=== PATIENT | female | born 1985 | race Caucasian/White ===

== ENCOUNTER 2017-03-15 03:43 | Emergency (ER) | payer SELFPAY ==
[~2017-03-15] VITALS: Ht 162.6 cm; Wt 72.0 kg
[2017-03-15 03:45] VITALS: BP 169/103; PULSE 100; RESP 16; TEMP 98; O2SAT 96
--- NOTE | 2017-03-15 04:37 | PD ---
HPI Chief Complaint: Psychiatric Symptoms Time Seen by Provider: 04:12 Travel History International Travel<30 days: No Contact w/Intl Traveler<30days: No Traveled to known affect area: No History of Present Illness HPI Patient is a 31-year-old female presents emergency department for evaluation of suicidal ideation. Patient states that she has "10 different plans to kill herself but nothing specific". Patient states that she has been doing some drinking tonight and her long distance boyfriend found out that she's been cheating on him which is triggered and emotional response tonight. She very reluctant to make eye contact very tearful when she gets history. States she's been diagnosed with ADHD and anxiety in the past but is not currently on any medications. She is accompanied by a friend who wants her to see a psychiatrist today. Patient denies any physical complaints, denies any chest pain shortness of breath abdominal pain nausea vomiting or diarrhea. PFSH Past Medical History Depression: Yes Tetanus Vaccination: > 5 Years Influenza Vaccination: No ?: Not LMP: 02/27/17 Social History Alcohol Use: Yes Tobacco Use: Yes Substance Use: No Allergies-Medications (Allergen,Severity, Reaction): Coded Allergies: Penicillin (Verified Allergy, Severe, Hives, 03/15/17) Reported Meds & Prescriptions Reported Meds & Active Scripts Active No Active Prescriptions or Reported Medications Review of Systems Except as stated in HPI: all other systems reviewed are Neg Physical Exam Narrative GENERAL: Well-developed well-nourished no apparent distress. SKIN: Focused skin assessment warm/dry. HEAD: Atraumatic. Normocephalic. EYES: Pupils equal and round. No scleral icterus. No injection or drainage. ENT: No nasal bleeding or discharge. Mucous membranes pink and moist. NECK: Trachea midline. No JVD. CARDIOVASCULAR: Regular rate and rhythm. No murmur appreciated. RESPIRATORY: No accessory muscle use. Clear to auscultation. Breath sounds equal bilaterally. GASTROINTESTINAL: Abdomen soft, non-tender, nondistended. Hepatic and splenic margins not palpable. MUSCULOSKELETAL: No obvious deformities. No clubbing. No cyanosis. No edema. NEUROLOGICAL: Awake and alert. No obvious cranial nerve deficits. Motor grossly within normal limits. Normal speech. PSYCHIATRIC: Depressed mood and depressed affect. Saw obscuring interviewed. Endorses suicidal ideation without specific planning. Appears somewhat distraught from a psychiatric standpoint and cannot clarify why. Data Data Last Documented VS Vital Signs Date Time Temp Pulse Resp B/P Pulse Ox O2 Delivery O2 Flow Rate FiO2 03/15/17 04:00 20 03/15/17 03:45 98.0 100 169/103 96 Room Air Orders Complete Blood Count With Diff (03/15/17 04:12) Comprehensive Metabolic Panel (03/15/17 04:12) Thyroid Stimulating Hormone (03/15/17 04:12) Ed Urine Pregnancytest Poc (03/15/17 04:12) Psych Screen (03/15/17 04:12) Drug Screen, Random Urine (03/15/17 04:12) Alcohol (Ethanol) (03/15/17 04:12) Salicylates (Aspirin) (03/15/17 04:12) Tylenol (Acetaminophen) (03/15/17 04:12) Labs Laboratory Tests Test 03/15/17 04:26 White Blood Count 15.1 TH/MM3 Red Blood Count 5.13 MIL/MM3 Hemoglobin 16.3 GM/DL Hematocrit 46.7 % Mean Corpuscular Volume 91.1 FL Mean Corpuscular Hemoglobin 31.7 PG Mean Corpuscular Hemoglobin 34.9 % Concent Red Cell Distribution Width 12.3 % Platelet Count 324 TH/MM3 Mean Platelet Volume 8.0 FL Neutrophils (%) (Auto) 74.1 % Lymphocytes (%) (Auto) 19.4 % Monocytes (%) (Auto) 5.3 % Eosinophils (%) (Auto) 0.8 % Basophils (%) (Auto) 0.4 % Neutrophils # (Auto) 11.2 TH/MM3 Lymphocytes # (Auto) 2.9 TH/MM3 Monocytes # (Auto) 0.8 TH/MM3 Eosinophils # (Auto) 0.1 TH/MM3 Basophils # (Auto) 0.1 TH/MM3 CBC Comment DIFF FINAL Differential Comment Sodium Level 139 MEQ/L Potassium Level 3.9 MEQ/L Chloride Level 106 MEQ/L Carbon Dioxide Level 21.3 MEQ/L Anion Gap 12 MEQ/L Blood Urea Nitrogen 6 MG/DL Creatinine 0.65 MG/DL Estimat Glomerular Filtration 105 ML/MIN Rate Random Glucose 107 MG/DL Calcium Level 9.3 MG/DL Total Bilirubin 0.3 MG/DL Aspartate Amino Transf 17 U/L (AST/SGOT) Alanine Aminotransferase 42 U/L (ALT/SGPT) Alkaline Phosphatase 67 U/L Total Protein 8.1 GM/DL Albumin 4.6 GM/DL Thyroid Stimulating Hormone 1.610 uIU/ML 3rd Gen Salicylates Level 2.7 MG/DL Acetaminophen Level LESS THAN 2.0 MCG/ML Ethyl Alcohol Level 108 MG/DL [facility] Medical Decision Making Medical Screen Exam Complete: Yes Emergency Medical Condition: Yes Differential Diagnosis Suicidal ideation, depression, shawn, adjustment disorder, alcohol intoxication. Narrative Course Patient was roomed in emergency department, currently remains voluntary status, her friend is here with her insisting that she stay for psychiatric evaluation which I don't disagree with his the patient does appear to be quite depressed. She is medically cleared for psychiatric evaluation and disposition. Diagnosis Primary Impression: Medical clearance for psychiatric admission Scripts No Active Prescriptions or Reported Meds Condition: Stable Mario Alberto Escobar MD Mar 15, 2017 04:37
[2017-03-15 04:40] LABS: AUTOMATED NEUTROPHIL # 11.2 TH/MM3 (1.8-7.7); BASOPHIL # 0.1 TH/MM3 (0-0.2); BASOPHIL % 0.4 % (0.0-2.0); EOSINOPHIL # 0.1 TH/MM3 (0-0.4); EOSINOPHIL % 0.8 % (0.0-4.0); HEMATOCRIT 46.7 % (35.0-46.0); HEMO FLAGS DIFF FINAL; LYMPH % 19.4 % (9.0-44.0); LYMPHOCYTE # 2.9 TH/MM3 (1.0-4.8); MEAN CELL VOLUME 91.1 FL (80.0-100.0); MEAN CORPUSCULAR HEMOGLOBIN 31.7 PG (27.0-34.0); MEAN CORPUSCULAR HGB CONC 34.9 % (32.0-36.0); MONO % 5.3 % (0.0-8.0); NEUT % 74.1 % (16.0-70.0); PLATELET COUNT 324 TH/MM3 (150-450); RED BLOOD COUNT 5.13 MIL/MM3 (4.00-5.30); RED CELL DISTRIBUTION WIDTH 12.3 % (11.6-17.2); WHITE BLOOD COUNT 15.1 TH/MM3 (4.0-11.0)
[2017-03-15 05:08] LABS: ANION GAP 12 MEQ/L (5-15)
[2017-03-15 05:33] LABS: ALKALINE PHOSPHATASE 67 U/L (45-117); ALT (GPT) 42 U/L (10-53); AST (GOT) 17 U/L (15-37); BICARBONATE 21.3 MEQ/L (21.0-32.0); BLOOD UREA NITROGEN 6 MG/DL (7-18); CHLORIDE 106 MEQ/L (98-107); GLOMERULAR FILTRATION RATE 105 ML/MIN (>89); POTASSIUM 3.9 MEQ/L (3.5-5.1); SODIUM (NA) 139 MEQ/L (136-145); TOTAL BILIRUBIN ADULT 0.3 MG/DL (0.2-1.0)
[2017-03-15 05:36] LABS: ACETAMINOPHEN LESS THAN 2.0 MCG/ML (10.0-30.0)
[2017-03-15 08:04] VITALS: BP 121/78; PULSE 89; RESP 16; O2SAT 97
[2017-03-15 11:30] VITALS: BP 124/83; PULSE 81; RESP 16; TEMP 97.8; O2SAT 99
[2017-03-15 12:55] LABS: AMPHETAMINE, URINE NEG (NEG); BARBITURATES, URINE NEG (NEG); COCAINE, URINE NEG (NEG)
[2017-03-15 13:09] VITALS: BP 147/88; RESP 18; TEMP 98.1; O2SAT 99
[2017-03-15 20:36] VITALS: BP 130/90; PULSE 81; RESP 20; O2SAT 98
[2017-03-15] MEDS ORDERED: LORazepam 1 MG TAB PO PRN (20:45)
[2017-03-15] MEDS ORDERED: LORazepam 2 MG/ML VIAL IV PUSH PRN ×4 (20:45)
[2017-03-15] MEDS ORDERED: FLUMAZENIL 0.5 MG/5 ML VIAL IV PUSH PRN (20:45)
[2017-03-15] MEDS ORDERED: LORazepam 2 MG TAB PO PRN (20:45)
[2017-03-15 22:12] VITALS: BP 132/80; PULSE 84; RESP 17; O2SAT 99
[2017-03-16 02:32] VITALS: BP 135/88; PULSE 94; RESP 20; O2SAT 98
[2017-03-16 06:00] VITALS: BP 128/88; PULSE 87; RESP 18; O2SAT 98
[2017-03-16 08:24] VITALS: BP 128/88
--- NOTE | 2017-03-16 08:45 | PD.PSY.CON ---
Provisional Diagnosis Admission Date 03/15/17 [place] I. Adjustment disorder with mixed disturbances of emotion and conduct F 43.25 alcohol intoxication t 10.929 History of Present Illness Service Psychiatry Consult Requested By EDMD Reason for Consult Consultation mental health Primary Care Physician No Primary Care Physician HPI A she is a 31 old white female who came voluntarily to the ED initially complaining of suicidal ideation "I have a doesn't always I could kill myself but none are an option right now" "I screwed up my dad's affairs I don't remember the last time I like myself. Patient seen screened in the ED urine toxicology negative for blood alcohol level of 108. Patient seen today in J pod with nurse Darleen. 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 That she did have a boyfriend who was local and moved to [place]. Becoming him long distance boyfriend. Within the past week he called her and broke up with her. She has increased her alcohol use though continuing to somewhat minimizes it. Stating she drinks 2-3 times per week and she drinks to excess. She denies other drug use. She denies any prior psychiatric hospitalizations though she did have a prior suicide attempt a number of years ago was placed on various medications for brief periods of time. She does not see a psychiatrist at the present time. She is not employed at this time. Though she states she does have a college degree with a minor from [employer]. She states she has some "autistic" tendencies. Though none are significantly evident at this time. In any event at the present time patient does not meet criteria for inpatient psychiatric stay. She wishes to go home to care for her father. At this time I would not recommend any medications though I strongly recommend referral to our outpatient support groups referral Saurabh. [place] act for further assessment Review of Systems Except as stated in HPI: all other systems reviewed are Neg Past Family Social History Coded Allergies: Penicillin (Verified Allergy, Severe, Hives, 03/15/17) Past Medical History Patient medically cleared ED No Active Prescriptions or Reported Meds Current Medications Medications (Trade) Dose Ordered Sig/Sammy Route Start Time Stop Time Status Last Admin (Romazicon Inj) 0.2 mg Q1M PRN IV PUSH 03/15/17 20:45 (Ativan) 1 mg Q4H PRN PO 03/15/17 20:45 03/15/17 20:49 (Ativan Inj) 1 mg Q4H PRN IV PUSH 03/15/17 20:45 (Ativan) 2 mg Q2H PRN PO 03/15/17 20:45 (Ativan Inj) 2 mg Q2H PRN IV PUSH 03/15/17 20:45 (Ativan Inj) 2 mg Q1H PRN IV PUSH 03/15/17 20:45 (Ativan Inj) 2 mg Q15M PRN IV PUSH 03/15/17 20:45 Family History Patient's mother is patient caregiver for her father she denies any physical or sexual abuse Social History 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 2) Patient verbal able access healthcare Physical Exam Patient seen screen in ED exam reviewed and agreed with Vital Signs Vital Signs Date Time Temp Pulse Resp B/P Pulse Ox O2 Delivery O2 Flow Rate FiO2 03/16/17 06:00 87 18 128/88 98 Room Air 03/15/17 13:09 98.1 Lab Results Blood alcohol level 108 Mental Status Examination Alert oriented full figured white female sitting calmly in her room on J pod nurse Mina present throughout session poor to fair eye contact Appearance Somewhat disheveled Speech: Unremarkable Orientation: x3 Memory: Unremarkable Thought Process: Logical, Linear Thought Content: Unremarkable Language Fair Fund of Knowledge Fair Hallucination Type: None (denies) Attention and Concentration: Other (fair) Suicidal Ideation: Yes (denies at this time) Previous Suicide Attempts: Yes (number of years ago) Homicidal Ideation: No Previous Homicide Attempts: No Insight: Poor Judgment: Poor Affect: Other (decreased range and intensity) Mood: Sad (restricted) Motor Activity: Normal gait Assessment & Plan Problem List: (1) Adjustment disorder with mixed disturbance of emotions and conduct ICD Code: F43.25 (2) Alcohol intoxication ICD Code: F10.929 Assessment & Plan Estimated LOS: days patient does not meet criteria for inpatient psychiatric care. Is okay by psych for discharge when medically clear and stable, no Rx by me, strong referral to [facility] outpatient support groups, strong referral [facility] [place] for further assessment for both mental health issues and alcohol abuse Discharge Planning See above Request HC Surrog/Guard Advoc?: No Jordan Lee MD Mar 16, 2017 08:45
== END 2017-03-16 08:43 | disposition home or self-care (01) ==
LOC: NEPE 03:43 → NEPJ 03-16 08:43
DX: F33.8 Other recurrent depressive disorders (principal); R45.851 Suicidal ideations
CPT/HCPCS: 80053; 80307; 84443; 84703; 85025; 99283